=== PATIENT | female | born 1945 | race Caucasian/White ===

== ENCOUNTER → 2017-05-01 | Outpatient (CLI) | payer MEDICARE, BC ==
[~2017-05-01] MED LIST: ASPIRIN EC81 MG PO; CALTRATE-600 D600 MG PO; CHOLEST OFF450 MG PO; GLUCOPHAGE-DPS500 MG PO; GLUCOSAMINE/CHO1 TAB PO; GLUCOTROL DPS5 MG PO; MIRALAX PACKET17 GM PO; OMEGA-3 DPS1000 MG PO; OXY IR DPS5 MG PO; PROBIOTIC1 EAC1 PO; SENOKOT S1 TAB PO; THERA1 EACH PO; TYLENOL DPS325 MG PO; ULTRAM DPS50 MG PO; XARELTO10 MG PO; ZESTRIL DPS10 MG PO
== END | disposition home or self-care (01) ==
DX: R19.7 Diarrhea, unspecified (principal)